=== PATIENT | female | born 1980 | race African-American/Black ===

== ENCOUNTER 2017-01-09 13:20 | Emergency (ER) ==
[2017-01-09] MEDS ORDERED: DECADRON IM ONE (13:43)
[2017-01-09 13:44] VITALS: BP 128/77
--- NOTE | 2017-01-09 14:31 | PROVIDER DOCUMENTATION ---
HPI-EENT General - General Chief Complaint: Sore Throat Stated Complaint: COLD SX Time Seen by Provider: 01/09/17 13:42 Source: patient Allergies/Adverse Reactions: Patient Allergies Allergy/AdvReac Type Severity Reaction Status Date / Time ketorolac tromethamine * Allergy HIVES Verified 01/09/17 14:07 [From Toradol] Home Medications: Home Medication List Medication Instructions Recorded Confirmed Last Taken Type Fluoxetine HCl [Prozac] 40 mg PO DAILY 05/02/16 01/09/17 01/09/17 06:30 History Omeprazole 20 mg PO DAILY 10/16/16 01/09/17 01/09/17 06:30 History Ondansetron Odt [Zofran 8Mg Odt] 8 mg PO Q8H PRN PRN #10 tablet 10/16/1601/09/17 06:30 Rx Zolpidem [Ambien] 10 mg PO QHS 10/16/16 01/09/17 Unknown History Guaifenesin/D-Methorphan Hb/PE 1 each PO BID #10 tablet 01/09/17 Unknown Rx [Deconex Dmx Tablet] Ibuprofen [Motrin] 800 mg PO Q8H PRN PRN #20 tablet 01/09/17 Unknown Rx Methylprednisolone [Medrol Dosepak] 4 mg PO DIRECTED #1 package 01/09/17 Unknown Rx Omeprazole [Prilosec] 20 mg PO DAILY@0700 #20 capsule 01/09/17 Unknown Rx - History of Present Illness-EENT General Nature of Presenting Problem: Pt is a 36 y/o AA female c chief complaint of cough and sore throat x 3 days. Pt states that everyone in her house hold has similar symptoms. On arrival, pt is in minimal distress and afebrile. Review of Systems - Adult - REVIEW OF SYSTEMS - ADULT Constitutional: reports: no symptoms reported. denies: chills, fatique Eyes: reports: no symptoms reported. denies: blurred vision, double vision Ears, Nose, Mouth & Throat: reports: hoarseness, throat pain. denies: ear pain , hearing loss Cardiovascular: reports: no symptoms reported. denies: irregular heart rate, orthopnea Respiratory: reports: cough. denies: shortness of breath Gastrointestinal: reports: no symptoms reported. denies: abdominal pain, nausea Genitourinary: reports: no symptoms reported. denies: dysuria, flank pain Musculoskeletal: reports: no symptoms reported. denies: bone pain, joint pain Integumentary: reports: no symptoms reported. denies: itching, rash Neurological: reports: no symptoms reported. denies: numbness, paresthesia Psychiatric: reports: no symptoms reported. denies: anxiety, emotional problems Endocrine: reports: no symptoms reported. denies: cold intolerance, heat intolerance Hematologic/Lymphatic: reports: no symptoms reported. denies: blood clots, low blood count Allergic/Immunologic: reports: no symptoms reported. denies: food allergy, frequent infections All Other Systems: Reviewed and Negative Past History - Adult - PAST MEDICAL HISTORY-ADULT Review of Records: reports: Old Records Reviewed, Nursing Assessment Review, Medications Reviewed, Social history reviewed & non-contributory. Major Childhood Illnesses: reports: denies history Cardiovascular: reports: denies history Respiratory: reports: denies history Gastrointestinal: reports: GERD Obstetrical/Gynecological: reports: denies history Genitourinary: reports: denies history Musculoskeletal: reports: denies history Neurological: reports: denies history Psychiatric: reports: denies history Endocrine/Immune: reports: denies history Other Conditions: reports: denies history - PRIOR SURGERIES/PROCEDURES Surgical/Procedure History: reports: cholecystectomy, hysterectomy, BTL, C- section, other (vertical sleeve gastrectomy) - PRIOR HOSPITALIZATIONS Prior Hospitalizations: reports: for other non-related - IMMUNIZATION STATUS Childhood Immunizations: See Nurse Assessment Flu Vaccine: See Nurse Assessment - FAMILY HISTORY Family History: reviewed, not pertinent - SOCIAL HISTORY Smoking: denies Substance Use: none/never Alcohol Use Frequency: never Living Situation: family Physical Exam- EENT - Physical Exam EENT Initial Vital Signs Reviewed: Yes General Appearance: appears well, alert, no apparent distress Eye Exam: bilateral eye: normal inspection, PERRL, EOMI Ear Exam: bilateral ear: auricle normal, canal normal, TM normal Nasal Exam: normal inspection Throat Exam: normal mouth inspection, pharynx swelling Neck: non-tender, supple Respiratory: chest non-tender, lungs clear, normal breath sounds Cardiovascular: normal peripheral pulses, regular rate, rhythm, no edema Abdominal Exam: normal bowel sounds, non tender, soft Lymphatic: no adenopathy Back Exam: normal inspection, no CVA tenderness, no vertebral tenderness Extremity: normal range of motion, non-tender, normal gait Integumentary: normal color, normal turgor, warm/dry Neurologic: grossly normal, no motor/sensory deficits Psych/Mental Status: normal mood/affect, normal thought content, normal thought process, oriented x 3 Progress - PLAN OF CARE/RESULTS Progress/Plan/Lab Results: Orders Category Date Time Status DIRECT STREP Stat Lab 01/09/17 13:42 Completed Flu Swab [INFLUENZA SCREEN A/B] Stat Lab 01/09/17 13:42 Completed Dexamethasone [Decadron] Med 01/09/17 13:43 Discontinued 10 mg IM NOW ONE Vital Signs - 24 hr 01/09/17 13:38 Temperature 98.9 F Pulse Rate 95 H Respiratory 16 Rate Blood Pressure 128/77 O2 Sat by Pulse 100 Oximetry Departure - Departure Time of Disposition Order: 14:33 DIAGNOSIS: URI (upper respiratory infection) Qualifiers: URI type: unspecified URI Qualified Code(s): J06.9 - Acute upper respiratory infection, unspecified Pharyngitis Qualifiers: Pharyngitis/tonsillitis etiology: unspecified etiology Qualified Code(s): J02.9 - Acute pharyngitis, unspecified Disposition: HOME 01 Certified Medical Emergency: Emergent Condition: Stable Additional Instructions: ED Follow Up Instructions: You have been treated by a care provider in the Emergency Department. These instructions are being provided to you so you can have an understanding of how to care for yourself upon discharge. Upon discharge from the Emergency Department, you are responsible for making arrangements for follow-up care by a physician of your choice. Take all prescribed medications as directed. Return to the Emergency Department immediately for any new or worsening symptoms. You may call the Physician Referral phone number at [phone] to obtain a list of Physicians who are taking new patients. Prescriptions: Guaifenesin/D-Methorphan Hb/PE [Deconex Dmx Tablet] 1 each PO BID #10 tablet Methylprednisolone [Medrol Dosepak] 4 mg PO DIRECTED #1 package Ibuprofen [Motrin] 800 mg PO Q8H PRN PRN #20 tablet PRN Reason: inflammation Omeprazole [Prilosec] 20 mg PO DAILY@0700 #20 capsule Attestation - Physician/ STEFANI Attestation Patient care was provided by Advanced Practice Provider:: Yes Advanced Practice Provider:: Caleb Douglas Advanced Practice Provider documentation review:: The Mid-level provider documentation, treatment plan and medical decision making was reviewed by the physician who agrees with all treatment and medical decision making by the MLP.
== END 2017-01-09 15:03 | disposition home or self-care (01) ==
LOC: ED 13:20
DX: J06.9 Acute upper respiratory infection, unspecified (principal); J02.9 Acute pharyngitis, unspecified; R05 Cough; R49.0 Dysphonia; K21.9 Gastro-esophageal reflux disease without esophagitis; Z98.84 Bariatric surgery status; Z79.899 Other long term (current) drug therapy
CPT/HCPCS: 87081; 87430; 87804

== ENCOUNTER 2017-01-17 12:30 | Emergency (ER) ==
[2017-01-17 12:42] VITALS: BP 128/89
--- NOTE | 2017-01-17 14:21 | PROVIDER DOCUMENTATION ---
HPI-EENT General - General Source: patient, family - History of Present Illness-EENT General EENT Location: reports: throat Quality of Pain: reports: aching Severity: reports: mild Onset/Duration: reports: other (3 weeks) Timing: reports: still present Prearrival Treatment: Initiated prescription meds Associated Symptoms: reports: cough, sore throat Locality of Occurance: Home Similar Symptoms Previously?: Yes Recently seen or treated by another doctor?: Yes - Throat/Dental Throat/Dental Problem Symptoms: reports: sore throat Throat/Dental Problem Context: denies: recent dental extractions, dental decay, exposure to allergen, foreign body, fractured tooth, ingestion, trauma/injury Recently seen a dentist or have an appointment?: No <Giana Peck - Last Filed: 01/17/17 14:46> <Cole Staples - Last Filed: 01/17/17 14:51> - General Chief Complaint: Cold Symptoms Stated Complaint: COLD SX Time Seen by Provider: 01/17/17 14:08 Allergies/Adverse Reactions: Patient Allergies Allergy/AdvReac Type Severity Reaction Status Date / Time ketorolac tromethamine * Allergy HIVES Verified 01/09/17 14:07 [From Toradol] Home Medications: Home Medication List Medication Instructions Recorded Confirmed Last Taken Type Fluoxetine HCl [Prozac] 40 mg PO DAILY 05/02/16 01/09/17 01/09/17 06:30 History Omeprazole 20 mg PO DAILY 10/16/16 01/09/17 01/09/17 06:30 History Ondansetron Odt [Zofran 8Mg Odt] 8 mg PO Q8H PRN PRN #10 tablet 10/16/1601/09/17 06:30 Rx Zolpidem [Ambien] 10 mg PO QHS 10/16/16 01/09/17 Unknown History Guaifenesin/D-Methorphan Hb/PE 1 each PO BID #10 tablet 01/09/17 Unknown Rx [Deconex Dmx Tablet] Ibuprofen [Motrin] 800 mg PO Q8H PRN PRN #20 tablet 01/09/17 Unknown Rx Methylprednisolone [Medrol Dosepak] 4 mg PO DIRECTED #1 package 01/09/17 Unknown Rx Omeprazole [Prilosec] 20 mg PO DAILY@0700 #20 capsule 01/09/17 Unknown Rx Guaifenesin/Codeine [Robitussin-AC] 10 ml PO Q4H PRN PRN #10 oz 01/17/17 Unknown Rx Montelukast Sodium [Singulair] 10 mg PO DAILY #30 tablet 01/17/17 Unknown Rx - History of Present Illness-EENT General Nature of Presenting Problem: Pt is 36 y/o F presents to the ED with sore throat and cough. Pt states symptoms have been present for three weeks. Pt denies N/V/D. Pt states recently being put on antibiotic. Pt denies improvement. (Giana Peck) Review of Systems - Adult - REVIEW OF SYSTEMS - ADULT Constitutional: reports: no symptoms reported Eyes: reports: no symptoms reported Ears, Nose, Mouth & Throat: reports: throat pain. denies: ear pain, nose pain Cardiovascular: reports: no symptoms reported Respiratory: reports: cough. denies: shortness of breath, wheezing Gastrointestinal: reports: no symptoms reported Genitourinary: reports: no symptoms reported Musculoskeletal: reports: no symptoms reported Integumentary: reports: no symptoms reported Neurological: reports: no symptoms reported Psychiatric: reports: no symptoms reported Endocrine: reports: no symptoms reported Hematologic/Lymphatic: reports: no symptoms reported Allergic/Immunologic: reports: no symptoms reported All Other Systems: Reviewed and Negative <Giana Peck - Last Filed: 01/17/17 14:46> Past History - Adult - PAST MEDICAL HISTORY-ADULT Review of Records: reports: Nursing Assessment Review, Medications Reviewed, Social history reviewed & non-contributory. Major Childhood Illnesses: reports: denies history Cardiovascular: reports: denies history Respiratory: reports: denies history Gastrointestinal: reports: GERD Obstetrical/Gynecological: reports: denies history Genitourinary: reports: denies history Musculoskeletal: reports: denies history Neurological: reports: headaches/migraines Psychiatric: reports: denies history Endocrine/Immune: reports: denies history Other Conditions: reports: denies history - PRIOR SURGERIES/PROCEDURES Surgical/Procedure History: reports: cholecystectomy, hysterectomy, BTL, C- section, other (vertical sleeve gastrectomy) - PRIOR HOSPITALIZATIONS Prior Hospitalizations: reports: for other non-related - IMMUNIZATION STATUS Childhood Immunizations: See Nurse Assessment Flu Vaccine: See Nurse Assessment - FAMILY HISTORY Family History: reviewed, not pertinent - SOCIAL HISTORY Smoking: denies Substance Use: denies Living Situation: family <Giana Peck - Last Filed: 01/17/17 14:46> Physical Exam- EENT - Physical Exam EENT Initial Vital Signs Reviewed: Yes General Appearance: appears well, alert, no apparent distress Eye Exam: bilateral eye: normal inspection, PERRL, EOMI Ear Exam: bilateral ear: auricle normal, canal normal, TM normal Nasal Exam: normal inspection Throat Exam: normal mouth inspection, pharynx normal Neck: non-tender, full range of motion, supple, normal inspection Respiratory: chest non-tender, lungs clear, normal breath sounds, no pleuratic chest pain, no respiratory distress, no accessory muscle use Cardiovascular: normal peripheral pulses, regular rate, rhythm, no edema, no gallop, no JVD, no murmur Abdominal Exam: normal bowel sounds, non tender, soft, no organomegaly, no pulsatile mass Lymphatic: no adenopathy Back Exam: normal inspection, no CVA tenderness, no vertebral tenderness Extremity: normal range of motion, non-tender, normal gait, normal inspection, no pedal edema, no calf tenderness, normal capillary refill Integumentary: normal color, normal turgor, warm/dry Neurologic: grossly normal Psych/Mental Status: normal mood/affect, oriented x 3 <Giana Peck - Last Filed: 01/17/17 14:46> Progress - XRAY 1 XRAY: Bilateral XRAY Study: other (sinuses quintanilla view only) Impression: Normal XRAY Interpretation: nad <Giana Peck - Last Filed: 01/17/17 14:46> <Cole Staples - Last Filed: 01/17/17 14:51> - PLAN OF CARE/RESULTS Progress/Plan/Lab Results: Laboratory Tests 01/17/17 12:47 Group A Strep Rapid NEGATIVE Orders Category Date Time Status strep [DIRECT STREP PL] Stat Lab 01/17/17 12:47 Completed Vital Signs - 24 hr 01/17/17 12:38 Temperature 97.9 F Pulse Rate 82 Respiratory 18 Rate Blood Pressure 128/89 O2 Sat by Pulse 100 Oximetry (Giana Peck) Departure <Giana Peck - Last Filed: 01/17/17 14:46> - Departure Time of Disposition Order: 14:48 Certified Medical Emergency: Emergent <Cole Staples Last Filed: 01/17/17 14:51> - Departure DIAGNOSIS: Hay fever Disposition: HOME 01 Condition: Stable Additional Instructions: ED Follow Up Instructions: You have been treated by a care provider in the Emergency Department. These instructions are being provided to you so you can have an understanding of how to care for yourself upon discharge. Upon discharge from the Emergency Department, you are responsible for making arrangements for follow-up care by a physician of your choice. Take all prescribed medications as directed. Return to the Emergency Department immediately for any new or worsening symptoms. You may call the Physician Referral phone number at [phone] to obtain a list of Physicians who are taking new patients. Prescriptions: Guaifenesin/Codeine [Robitussin-AC] 10 ml PO Q4H PRN PRN #10 oz PRN Reason: Cough Montelukast Sodium [Singulair] 10 mg PO DAILY #30 tablet Referrals: None,PCP [Primary Care Provider] - Attestation - Scribe Verification/Attestation Scribe:: Giana Peck Acting as Scribe for:: Cole Staples Scribe documention review:: This chart was documented by a scribe and accurately reflects the service the provider performed and the decisions made by the provider. <Giana Peck - Last Filed: 01/17/17 14:46> Physician Attestation
--- NOTE | 2017-01-17 15:10 | Diag Imaging Result Document ---
PROCEDURE NAME: SINUSES MALONEY VIEW ONLY - 01/17/2017 MALONEY VIEW: FINDINGS: The paranasal sinuses are clear. There is no evidence of acute bony disease. Compared to 10/27/2015, there has been no significant change. IMPRESSION: No acute disease.
== END 2017-01-17 15:00 | disposition home or self-care (01) ==
LOC: P.ED 12:30
DX: J30.1 Allergic rhinitis due to pollen (principal); J02.9 Acute pharyngitis, unspecified; R05 Cough; K21.9 Gastro-esophageal reflux disease without esophagitis; R51 Headache; Z98.84 Bariatric surgery status; Z79.899 Other long term (current) drug therapy
CPT/HCPCS: 70210; 87081; 87430; 99283